=== PATIENT | female | born 1945 | race Native Hawaiian/Other Pacific Islander ===

== ENCOUNTER 2017-08-27 19:35 | Emergency (ER) | payer OTHER, MEDICARE ==
[~2017-08-27] VITALS: Ht 152.4 cm; Wt 69.9 kg
[2017-08-27 20:37] LABS: PLATELET COUNT 331 K/uL (152-353)
[2017-08-27 20:42] LABS: POTASSIUM 3.8 mmol/L (3.6-5.2)
[2017-08-27 21:12] VITALS: BP 128/78; TEMP 98.3
[2017-08-27] MEDS ORDERED: DULOXETINE HCL60 MG PO (21:45)
[2017-08-27] MEDS ORDERED: KP FOLIC ACID1 MG PO (21:47)
[2017-08-27] MEDS ORDERED: FLUOXETINE10 M1 PO (21:47)
[2017-08-27] MEDS ORDERED: LOSA50TA PO (21:48)
[2017-08-27] MEDS ORDERED: VITAMIN B123000 MCG PO (21:50)
[2017-08-27] MEDS ORDERED: VITAMIN D22000 UNIT PO (21:51)
[2017-08-27] MEDS ORDERED: BISOPROL FUM5 MG PO (21:52)
[2017-08-27] MEDS ORDERED: ELIQUIS2.5 MG PO (21:53)
[2017-08-27] MEDS ORDERED: NITROSTAT0.4 MG SL (21:55)
[2017-08-27] MEDS ORDERED: LIPITOR80 MG PO (21:56)
[2017-08-27] MEDS ORDERED: QUETIAPINE25 MG PO (21:57)
== END 2017-08-27 21:32 | disposition other institution (70) ==
LOC: ED 19:35
PROVIDERS: Specialist
DX: Z04.6 Encounter for general psychiatric examination, requested by authority (principal); F03.90 Unspecified dementia, unspecified severity, without behavioral disturbance, psychotic disturbance, mood disturbance, and anxiety
CPT/HCPCS: 36415; 80053; 81000; 85027; 93005; 99285